=== PATIENT | male | born 1985 | race Caucasian/White ===

== ENCOUNTER 2017-08-09 17:48 | Emergency (ER) | payer BC ==
[~2017-08-09] VITALS: Ht 188 cm; Wt 113.6 kg
[2017-08-09 17:56] VITALS: Ht 188 cm; Wt 113.6 kg
[2017-08-09 18:40] LABS: BASOPHILS 0.1 % (0-2); EOSINOPHILS 0.5 % (0-7); HEMOGLOBIN 14.3 g/dL (13.5-17.5); IMMATURE GRANULOCYTES 0.2 % (0-5); LYMPHOCYTES 17.5 % (15-50); MCH 30.4 pg (26.0-34.0); MCHC 34.9 g/dL (31.0-37.0); MCV 87.2 fL (80.0-100.0); MEAN PLATELET VOLUME 9.4 fL (7.4-10.4); MONOCYTES 6.1 % (2-11); NEUTROPHILS 75.6 % (40-80); PLATELET COUNT 184 10x3/uL (130-400); RDW 12.3 % (11.5-14.5)
[2017-08-09 18:53] LABS: ALBUMIN 4.1 g/dL (3.4-5.0); ALKALINE PHOSPHATASE 35 U/L (46-116); ALT (SGPT) 33 U/L (10-68); CALC OSMOLALITY 279 mosm/kg (275-300); CALCIUM 9.2 mg/dL (8.5-10.1); CARBON DIOXIDE 25.7 mmol/L (21.0-32.0); CHLORIDE - SERUM 105 mmol/L (98-107); CREATININE - SERUM 1.1 mg/dL (0.6-1.3); GLUCOSE 103 mg/dL (74-106); POTASSIUM - SERUM 3.9 mmol/L (3.5-5.1); PROTEIN - SERUM 7.9 g/dL (6.4-8.2); SODIUM 139 mmol/L (136-145); UREA NITROGEN 17 mg/dL (7-18); eGFR NON AFRICAN AMERICAN 82 mL/min (90-120)
[2017-08-09 18:57] LABS: TROPONIN-I < 0.017 ng/mL (0.000-0.060)
[2017-08-09] MEDS ORDERED: KLONOPIN0.5 MG PO (19:58)
[2017-08-09 20:24] VITALS: BP 114/67
== END 2017-08-09 20:26 | disposition home or self-care (01) ==
LOC: D.ER 17:48
PROVIDERS: Family Medicine
DX: F41.9 Anxiety disorder, unspecified (principal); R07.9 Chest pain, unspecified; R51 Headache; R53.1 Weakness; R00.2 Palpitations; F17.200 Nicotine dependence, unspecified, uncomplicated